=== PATIENT | male | born 1955 ===

== ENCOUNTER → 2018-04-07 14:47 | Outpatient (REF) | payer OTHER, SELFPAY | LOC: LAB 14:47 | PROVIDERS: Visit Provider Dermatology | DX: L01.01 Non-bullous impetigo (principal); B00.0 Eczema herpeticum; C84.A0 Cutaneous T-cell lymphoma, unspecified, unspecified site; T81.89XA Other complications of procedures, not elsewhere classified, initial encounter | CPT/HCPCS: 87070; 87075; 87186; 87205 ==